=== PATIENT | female | born 1995 | race Two or more races ===

== ENCOUNTER 2019-04-10 19:18 | Emergency (ER) | payer OTHER ==
[~2019-04-10] VITALS: Ht 160 cm; Wt 67.6 kg
[2019-04-10] MEDS ORDERED: CORTISONE60 GM (19:32)
== END 2019-04-11 00:31 | disposition home or self-care (01) ==
LOC: ER 19:18
DX: S93.401A Sprain of unspecified ligament of right ankle, initial encounter (principal); X50.3XXA Overexertion from repetitive movements, initial encounter; Y93.89 Activity, other specified; Y92.89 Other specified places as the place of occurrence of the external cause; Y99.8 Other external cause status